=== PATIENT | male | born 1990 | race Caucasian/White ===

== ENCOUNTER 2021-06-17 17:27 | Observation (INO) | payer BC ==
[2021-06-17] MEDS ORDERED: Acetaminophen 650 MG Suppository PR PRN (17:31)
[2021-06-17] MEDS ORDERED: Ondansetron PF 4 MG/2 ML Vial IVP PRN (17:31)
[2021-06-17] MEDS ORDERED: Ondansetron ODT 4 MG TAB PO PRN (17:31)
[2021-06-17] MEDS ORDERED: HumaLOG 300 UNITS/3 ML VIAL SC PRN (17:31)
[2021-06-17] MEDS ORDERED: Dextrose 5% in Water 1,000 ML IV PRN (17:31)
[2021-06-17] MEDS ORDERED: Senokot S 8.6-50 MG TAB PO PRN (17:31)
[2021-06-17] MEDS ORDERED: Dextrose 50% Abboject 50 ML SYRINGE SLOW IVP PRN (17:31)
[2021-06-17] MEDS ORDERED: Bisacodyl 5 MG TAB PO PRN (17:31)
[2021-06-17] MEDS ORDERED: Acetaminophen 325 MG TAB PO PRN (17:31)
[2021-06-17] MEDS ORDERED: Aspirin 81 mg Enteric Coated Tablet PO SCH (18:15)
[2021-06-17 18:17] VITALS: BMI 24.5
[2021-06-17] MEDS ORDERED: Lorazepam 1 MG TAB PO PRN (18:28)
[2021-06-17] MEDS ORDERED: Lorazepam 2 MG/ML VIAL IM PRN (18:28)
[2021-06-17] MEDS ORDERED: Thiamine 100 MG TAB PO SCH (18:30)
[2021-06-17] MEDS ORDERED: Electrolyte Replacement Protocol FS PRN (18:30)
[2021-06-17] MEDS ORDERED: Multivit, Therapeutic 1 TAB PO SCH (18:45)
[2021-06-17] MEDS ORDERED: Lactated Ringer's 1,000 ML IV SCH (18:45)
[2021-06-17] MEDS ORDERED: Folic Acid 1 MG TAB PO SCH (18:45)
[2021-06-17 18:51] LABS: Alcohol Less than 10 mg/dL (Less than 10); Phosphorus 3.1 mg/dL (2.3-4.7)
[2021-06-17 18:55] LABS: ALT (SGPT) 18 U/L (8-55); AST (SGOT) 19 U/L (5-34); Albumin 4.3 g/dL (3.5-5.0); Alkaline Phosphatase 52 U/L (40-110); Anion Gap 23 mmol/L (10-20); BUN (Urea Nitrogen) 12 mg/dL (8.9-20.6); Bilirubin, Total 0.9 mg/dL (0.2-1.2); Calc. Creatinine Clearance 107 mL/min (70-130); Calcium 8.9 mg/dL (7.8-10.44); Carbon Dioxide 18 mmol/L (22-29); Cardiac Risk 3.3 (Less than 4.5); Chloride 99 mmol/L (98-107); Cholesterol 179 mg/dl (< 200 Desired); Globulin 3.1 g/dL (2.4-3.5); Glucose 360 mg/dL (70-105); HDL Cholesterol 55 mg/dL (>60 Neg Risk); LDL Cholesterol, Calculated 85 mg/dL; Lipase 23 U/L (8-78); Magnesium 1.8 mg/dL (1.6-2.6); Protein, Total 7.4 g/dL (6.0-8.3); Sodium 135 mmol/L (136-145); Triglycerides 193 mg/dL (Less than 150)
[2021-06-17] MEDS ORDERED: Enoxaparin Sodium 40 MG/0.4 ML SYRINGE SC SCH (19:00)
[2021-06-17] MEDS ORDERED: Lantus 1000 UNITS/10 ML VIAL SC SCH (19:00)
[2021-06-17 19:50] LABS: Amphetamine Not Detected (NotDetected); Barbiturates Screen Not Detected (NotDetected); Benzodiazepine Screen Not Detected (NotDetected); Cocaine Metabolite Screen Not Detected (NotDetected); Methadone Not Detected (NotDetected); Methamphetamine Not Detected (NotDetected); Opiate Screen Not Detected (NotDetected); Oxycodone Screen Not Detected (NotDetected); Phencyclidine (PCP) Not Detected (NotDetected); THC/Cannabinoid Screen Not Detected (NotDetected); Tricyclic Screen Not Detected (NotDetected)
[2021-06-17] MEDS ORDERED: Magnesium 2 GM/50 ML 2 GM in Premix Bag 1 BAG IVPB SCH (20:00)
[2021-06-17] MEDS: Lorazepam 1 MG TAB PO SCH (20:22)
[2021-06-17] MEDS ORDERED: Atorvastatin Calcium 20 MG TAB PO SCH (21:00)
[2021-06-18] MEDS: Lorazepam 1 MG TAB PO SCH ×2 (00:55→06:39)
[2021-06-18 05:30] LABS: Anion Gap 15 mmol/L (10-20); BUN (Urea Nitrogen) 11 mg/dL (8.9-20.6); Calc. Creatinine Clearance 122 mL/min (70-130); Calcium 8.5 mg/dL (7.8-10.44); Carbon Dioxide 24 mmol/L (22-29); Chloride 104 mmol/L (98-107); Glucose 116 mg/dL (70-105); Potassium 3.7 mmol/L (3.5-5.1); Sodium 139 mmol/L (136-145)
[2021-06-18 05:32] LABS: #Eosinphils 0.1 10x3/uL (0.0-0.5); #Monocytes 0.4 10x3/uL (0.0-1.1); %Basophils 0.9 % (0.0-2.0); %Eosinophils 2.9 % (0.0-6.0); %Lymphocytes 41.7 % (18.0-47.0); %Monocytes 8.9 % (0.0-10.0); %Neutrophils 45.2 % (40.0-75.0); Hemoglobin 15.6 g/dL (13.5-17.5); Mean Corpuscular HGB CONC 34.1 g/dL (32.0-36.0); Mean Corpuscular Hemoglobin 31.6 pg (27.0-33.0); Mean Corpuscular Volume 92.5 fl (81.2-95.1); Mean Platelet Volume 10.4 fl (7.4-10.4); Platelet Count 195 10x3/uL (150-450); RBC Distribution Width 11.2 % (11.5-14.5); Red Blood Cell (RBC) Count 4.94 10x6/uL (4.32-5.72); White Blood Cell (WBC) Count 4.5 10x3/uL (3.5-10.5)
[2021-06-18] MEDS ORDERED: Magnesium 2 GM/50 ML 2 GM in Premix Bag 1 BAG IVPB SCH (06:30)
[2021-06-18 07:49] VITALS: BP 128/72; TEMP 97.5
[2021-06-18] MEDS ORDERED: Multivit, Therapeutic 1 TAB PO SCH (09:00)
[2021-06-18] MEDS ORDERED: Aspirin 81 mg Enteric Coated Tablet PO SCH (09:00)
[2021-06-18] MEDS ORDERED: Enoxaparin Sodium 40 MG/0.4 ML SYRINGE SC SCH (09:00)
[2021-06-18] MEDS ORDERED: Folic Acid 1 MG TAB PO SCH (09:00)
[2021-06-18 12:16] LABS: Hemoglobin A1c 9.8 % (4.0-6.0)
[2021-06-18 15:38] LABS: SARS-CoV-2 PCR by NAA Not Detected (NotDetected)
[2021-06-18] MEDS ORDERED: Lorazepam 1 MG TAB PO PRN (18:28)
[2021-06-19] MEDS ORDERED: Lorazepam 1 MG TAB PO PRN (18:28)
[2021-06-19] MEDS ORDERED: Lorazepam 0.5 MG TAB PO SCH (18:30)
[2021-06-20] MEDS ORDERED: Lorazepam 0.5 MG TAB PO PRN (18:28)
== END 2021-06-18 09:14 | disposition home or self-care (01) ==
LOC: CSHTELE 17:27 → INTOOBSV 17:27
PROVIDERS: ADMIT Family Medicine; ATTEND Family Medicine
DX: R00.2 Palpitations (principal); F10.10 Alcohol abuse, uncomplicated; E10.9 Type 1 diabetes mellitus without complications; E78.5 Hyperlipidemia, unspecified; E55.9 Vitamin D deficiency, unspecified; F17.220 Nicotine dependence, chewing tobacco, uncomplicated; Z79.4 Long term (current) use of insulin; Z20.822 Contact with and (suspected) exposure to COVID-19
CPT/HCPCS: 36415; 36416; 80048; 80061; 80306; 80307; 83036; 83690; 83735; 84100; 84443; 85025; 93005; 93010; 96372; 96374; 96376; G0378; J1650; J3475; J7120; U0003; U0005